=== PATIENT | female | born 1970 | race Caucasian/White ===

== ENCOUNTER 2022-11-28 10:59 | Emergency (ER) | payer OTHER ==
[~2022-11-28] VITALS: Ht 162.6 cm; Wt 72.6 kg
[2022-11-28 11:13] VITALS: BP 178/103; PULSE 76; RESP 15; TEMP 98.1
[2022-11-28] MEDS ORDERED: KETOROLAC 30 MG/ML VIAL IM ONE (12:25)
[2022-11-28] MEDS ORDERED: CYCL-711 PO (12:31)
[2022-11-28] MEDS ORDERED: LID5T TP (12:31)
[2022-11-28] MEDS ORDERED: NAPR-1704 PO (12:31)
== END 2022-11-28 13:19 | disposition home or self-care (01) ==
LOC: MED 10:59
DX: S86.812A Strain of other muscle(s) and tendon(s) at lower leg level, left leg, initial encounter (principal); E11.9 Type 2 diabetes mellitus without complications; Z79.899 Other long term (current) drug therapy; X58.XXXA Exposure to other specified factors, initial encounter; Y93.B9 Activity, other involving muscle strengthening exercises; Y92.89 Other specified places as the place of occurrence of the external cause; Y99.8 Other external cause status
CPT/HCPCS: 96372; 99283; J1885